=== PATIENT | female | born 1980 | race Caucasian/White ===

== ENCOUNTER 2021-10-03 19:53 | Emergency (ER) | payer OTHER ==
--- NOTE | 2021-10-03 20:40 | ERPHSYRPT ---
- History of Present Illness Time Seen by Provider: 10/03/21 20:36 Source: patient Exam Limitations: no limitations Patient Subjective Stated Complaint: "My right hip hurts" Triage Nursing Assessment: Pt c/o R hip pain for a month, denies injury, pt states that the pain is getting unbearable where she cannot even lay on that side, pt has no deformity noted on R hip Physician History: "My right hip hurts" for 1 month Method of Injury: unknown Occurred: days ago Quality: constant, throbbing Severity of Pain-Max: moderate Severity of Pain-Current: moderate Lower Extremities Pain: hip: right Modifying Factors: Improves With: nothing Associated Symptoms: none Allergies/Adverse Reactions: No Known Drug Allergies Allergy (Verified 10/03/21 20:07) Home Medications: Estradiol [Estrace] 2 mg PO DAILY 10/03/21 [History] Sertraline HCl 50 mg [Zoloft 50 mg Tablet] 50 mg PO DAILY 10/03/21 [History] Hx Tetanus, Diphtheria Vaccination/Date Given: Yes Hx Influenza Vaccination/Date Given: Yes Hx Pneumococcal Vaccination/Date Given: No Immunizations Up to Date: Yes Travel Risk - International Travel Have you traveled outside of the country in past 3 weeks: No - Coronavirus Screening Are you exhibiting any of the following symptoms?: No Close contact with a COVID-19 positive Pt in past 14-21 Days: No - Vaccine Status Have you recieved a Covid-19 vaccination: Yes [employer]: [employer] - Review of Systems Constitutional: No Symptoms Eyes: No Symptoms Ears, Nose, & Throat: No Symptoms Respiratory: No Symptoms Cardiac: No Symptoms Abdominal/Gastrointestinal: No Symptoms Genitourinary Symptoms: No Symptoms Musculoskeletal: Other (right hip pain in greater trochanter area) - Past Medical History Neurological History: No Pertinent History Cardiac History: No Pertinent History Respiratory History: No Pertinent History Endocrine Medical History: No Pertinent History Musculoskeletal History: No Pertinent History Female Reproductive Disorders: Cervical Cancer Other Medical History: R Thumb fracture (childhood), Tonsillectomy (1998), C- Section (2002, 2004), Appendectomy (2004), Cholecystectomy (2012), Hysterectomy (2018) - Past Surgical History Past Surgical History: Yes Other Surgical History: R Thumb fracture (childhood), Tonsillectomy (1998), C- Section (2002, 2004), Appendectomy (2005), Cholecystectomy (2012), Hysterectomy (2018), carpal tunnel in bilateral wrists (2020) - Social History Smoking Status: Current every day smoker Exposure to second hand smoke: Yes Drug Use: none Patient Lives Alone: No - Female History Hx Last Menstrual Period: hysterectomy Hx Now: No - Nursing Vital Signs Nursing Vital Signs: Initial Vital Signs Temperature 98.5 F 10/03/21 20:00 Pulse Rate 77 10/03/21 20:00 Respiratory Rate 16 10/03/21 20:00 Blood Pressure 114/73 10/03/21 20:00 O2 Sat by Pulse Oximetry 98 10/03/21 20:00 Pain Scale Pain Intensity 9 - Physical Exam General Appearance: no apparent distress Eyes, Ears, Nose, Throat Exam: normal ENT inspection Neck Exam: normal inspection Cardiovascular/Respiratory Exam: chest non-tender Gastrointestinal/Abdominal Exam: non-tender Back Exam: normal inspection Hips Exam: right: soft tissue tenderness (greater trochanter area), bilateral: non-tender Legs Exam: bilateral leg: non-tender Knees Exam: bilateral knee: non-tender Ankle Exam: bilateral ankle: non-tender Foot Exam: bilateral foot: non-tender Neuro/Tendon Exam: normal sensation, normal motor functions, normal tendon functions Mental Status Exam: alert, oriented x 3, cooperative Skin Exam: normal color SpO2 Interpretation: normal SpO2: 98 O2 Delivery: Room Air Procedures - Nerve Block Time of Procedure: 20:39 Location: right greater trochanter bursa injection Prepped with: Alcohol wipe Anesthesia: kenalog Volume Anesthetic (ccs): 1 Needle & Syringe: 1.5 inches needle 21 G Complications: none Progress: Right greater trochanteric bursa area was injected with 1 cc Kenalog which is equivalent to 40 mg of triamcinolone mixed with 1 cc lidocaine 1%. Patient tolerated procedure well. - Course Nursing assessment & vital signs reviewed: Yes Ordered Tests: Medication Summary Discontinued Medications Generic Name Dose Route Start Last Admin Trade Name Freq PRN Reason Stop Dose Admin Triamcinolone Acetonide 40 mg 10/03/21 20:41 10/03/21 20:45 Triamcinolone Acetonide 40 Mg/Ml Ml IM 10/03/21 20:42 40 mg STAT ONE Administration Triamcinolone Acetonide Confirm 10/03/21 20:42 Triamcinolone Acetonide 40 Mg/Ml Ml Administered 10/03/21 20:43 Dose 40 mg .ROUTE .STK-MED ONE - Progress Progress: improved Counseled pt/family regarding: diagnosis, need for follow-up - Departure Departure Disposition: Home Clinical Impression: Trochanteric bursitis of right hip Condition: Stable Critical Care Time: No Referrals: CARLOS GALAVIZ, [employer] [Primary Care Provider] - Follow up/PCP as directed Instructions: Hip Bursitis (DC) Additional Instructions: Discharge/Care Plan LUIS ANGEL MONTALVO was seen on 10/03/21 in the Emergency Room. The patient was counseled regarding Diagnosis,Lab results, Imaging studies, need for follow up and when to return to the Emergency Room. Prescriptions given: Discharge Note I have spoken with the patient and/or caregivers. I have explained the patient's condition, diagnosis and treatment plan based on the information available to me at this time. I have answered the patient's and/or caregiver's questions and addressed any concerns. The patient and/or caregivers have as good understanding of the patient's diagnosis, condition and treatment plan as can be expected at this point. The vital signs have been stable. The patient's condition is stable and appropriate for discharge from the emergency department. The patient will pursue further outpatient evaluation with the primary care physician or other designated or consulting physician as outlined in the discharge instructions. The patient and/or caregivers are agreeable to this plan of care and follow-up instructions have been explained in detail. The patient and/or caregivers have received these instruction. The patient/and or caregivers are aware that any significant change in condition or worsening of symptoms should prompt an immediate return to this or the closest emergency department or call 911. LUIS ANGEL MONTALVO was seen on 10/03/21 n the Emergency Room. At that time you were treated for an emergent condition, during your visit Laboratory, Radiology and/or other procedures may have been ordered. It is very important that you follow-up with your Primary Care Physician CARLOS GALAVIZ within the next 24-48 hours to review your Emergency Room visit and the final results of testing that was ordered. Some test results such as Urine Cultures, Blood Cultures, and other cultures if ordered will not be finalized for 24-48 hours. If you do not have a Primary Care Provider please call the medical records department at [phone] ext [phone] to obtain a copy of your results or you may sign into our patient portal to obtain these results by visiting us @ [email or web address] and completing the following steps: 1. Click on the Patient Portal link 2. Click the Patient Self Enrollment Link to complete the enrollment form and entering your 3. Once the enrollment form is completed you will receive an email with a temporary ID and password at the email address you provided. 4. Next choose a user name and password. Your user name must be at least 4 characters long and your password must be at least 4 characters long. 5. Choose a security question from the list and provide your answer to the question. If you already have signed into the Health Portal you may access your Health Care Information 27/01 by the following steps: 1. Login to our website @ [email or web address] 2. Enter your original user name and password. FAQS The [facility] Health Portal is an online tool that contains your Lab Results, Radiology Reports, Visit History, Discharge Instructions and Health Summary Lab and Radiology Results will not be available for 72 hours on the portal. The Portal is a secure site, passwords are encryted and URLs are re-written so they cannot be copied and pasted. You and authorized family members are the only ones who can access your Portal. Also there is a timeout feature that protects your information if you leave the Portal page open. If you have technical difficulty please use the Contact Us link on the page this will allow you to submit any questions you have regarding the Portal or you may contact the Medical Record Department at [phone].
[2021-10-03] MEDS ORDERED: Kenalog-40 IM ONE (20:41)
[2021-10-03] MEDS ORDERED: Kenalog-40 ONE (20:42)
[2021-10-03 20:54] VITALS: BP 115/72; PULSE 84; O2SAT 96
== END 2021-10-03 20:54 | disposition home or self-care (01) ==
LOC: ED 19:53
DX: M70.61 Trochanteric bursitis, right hip (principal); M25.551 Pain in right hip; Z72.0 Tobacco use
CPT/HCPCS: 20610; 96372; 99283; J3301